=== PATIENT | female | born 1990 | race Two or more races ===

== ENCOUNTER → 2018-01-01 | Outpatient (CLI) | payer OTHER ==
[2018-01-01 19:19] LABS: FREE T4 (FREE THYROXINE) 1.06 ng/dL (0.78-2.19)
[2018-01-01 19:33] LABS: THYROID STIMULATING HORMONE 1.48 uIU/mL (0.47-4.68)
== END ==
LOC: OD 17:34
PROVIDERS: ATTEND Psychiatry & Neurology Psychiatry
DX: F43.10 Post-traumatic stress disorder, unspecified (principal)
CPT/HCPCS: 36415; 84439; 84443

== ENCOUNTER 2019-01-20 20:29 | Emergency (ER) | payer SELFPAY ==
[2019-01-20] MEDS ORDERED: ASPIRIN 81 MG TABLET, CHEWABLE PO ONE (20:37)
--- NOTE | 2019-01-20 20:37 | ER Document Report ---
ED Medical Screen (RME) - General Stated Complaint: CHEST PAIN Time Seen by Provider: 01/20/19 20:31 Primary Care Provider: CHIQUITA CARTWRIGHT MD [Primary Care Provider] - Follow up as needed Mode of Arrival: Ambulatory Information source: Patient Notes: Patient presents to the emergency department with chest pain that radiates to her back started 3 days ago. Reports she is having a hard time breathing. Is unsure if she is . Denies recent long trip. Has history of cardiac disease I have greeted and performed a rapid initial assessment of this patient. A comprehensive ED assessment and evaluation of the patient, analysis of test results and completion of the medical decision making process will be conducted by additional ED providers. Dictation of this chart was performed using voice recognition software; therefore, there may be some unintended grammatical errors. TRAVEL OUTSIDE OF THE [place] IN LAST 30 DAYS: No Doctor's Discharge - Discharge Referrals: CHIQUITA CARTWRIGHT MD [Primary Care Provider] - Follow up as needed
--- NOTE | 2019-01-20 21:06 | RADIOLOGY REPORT (SQ) ---
EXAM DESCRIPTION: XR CHEST 2 VIEWS COMPLETED DATE/TME: 01/20/2019 20:33 CLINICAL HISTORY: 28 years, Female, cp, difficulty breathing back pain Comparison: None FINDINGS: No focal lung consolidation. No pleural effusion. No pneumothorax. Cardiac and mediastinal silhouette is unremarkable. No acute osseous abnormality. Soft tissues are unremarkable. IMPRESSION: No acute findings. No focal lung consolidation.
--- NOTE | 2019-01-20 23:33 | EKG REPORT ---
SEVERITY:- NORMAL ECG - SINUS RHYTHM : Confirmed by: Aziza Lew MD 20-Jan-2019 23:32:19
[2019-01-21] MEDS ORDERED: ASPIRIN 81 MG TABLET, CHEWABLE PO ONE (04:01)
[2019-01-21] MEDS ORDERED: ASPIRIN 81 MG TABLET, CHEWABLE ONE (04:05)
[2019-01-21] MEDS ORDERED: LIDOCAINE 2% VISCOUS SOLN 20 ML UDCUP PO ONE (04:45)
[2019-01-21] MEDS ORDERED: METOCLOPRAMIDE HCL ORAL SOLN 10 MG/10 ML UDCUP PO ONE (04:45)
[2019-01-21] MEDS ORDERED: MAG HYDROX/AL HYDROX/SIMETH SUSP 30 ML UDCUP PO ONE (04:45)
--- NOTE | 2019-01-21 04:47 | ER Document Report ---
ED General - General Chief Complaint: Chest Pain Stated Complaint: CHEST PAIN Time Seen by Provider: 01/20/19 20:31 Primary Care Provider: CHIQUITA CARTWRIGHT MD [NO LOCAL MD] - Follow up as needed Mode of Arrival: Ambulatory Notes: Patient is a 28-year-old female who presents with complaints of some pain in the substernal epigastric region. Says pain is worse with eating. Is been there for approximately 3 days. No fevers. No vomiting. No diarrhea. No blood in her stool. She is never had this before. No other complaints at this time. She does eat spicy and acidic foods. She does not smoke. No alcohol use. In the triage note it mentions something about her potentially having a cardiac history however patient and her deny her having any history of any heart problems. TRAVEL OUTSIDE OF THE [place] IN LAST 30 DAYS: No - Related Data Allergies/Adverse Reactions: No Known Allergies Allergy (Unverified 01/21/19 04:38) Past Medical History - General Information source: Patient - Social History Smoking Status: Never Smoker Frequency of alcohol use: None Drug Abuse: None Family History: Reviewed & Not Pertinent Patient has suicidal ideation: No Patient has homicidal ideation: No Neurological Medical History: Reports: Hx Migraine Renal/ Medical History: Denies: Hx Peritoneal Dialysis Review of Systems - Review of Systems Notes: My Normal Review Basic REVIEW OF SYSTEMS: CONSTITUTIONAL : Denies fever, chills, or sweats. Denies recent illness. CARDIOVASCULAR: Lower substernal chest pain RESPIRATORY: Denies cough, cold, or chest congestion. Denies shortness of breath, difficulty breathing, or wheezing. GASTROINTESTINAL: Epigastric abdominal pain. Denies nausea, vomiting, or diarrhea. MUSCULOSKELETAL: Denies neck or back pain or joint pain or swelling. SKIN: Denies rash or skin lesions. NEUROLOGICAL: Denies altered mental status or loss of consciousness. Denies headache. Denies weakness or paralysis or loss of use of either side. Denies problems with gait or speech. Denies sensory or motor loss. ALL OTHER SYSTEMS REVIEWED AND NEGATIVE. Physical Exam - Vital signs Vitals: Temp Pulse Resp BP Pulse Ox 98.0 F 68 18 119/79 98 01/20/19 21:01 01/20/19 21:01 01/20/19 21:01 01/20/19 21:01 01/20/19 21:01 - Notes Notes: General Appearance: Well nourished, alert, cooperative, no acute distress, no obvious discomfort. Well-appearing. Vitals: reviewed, See vital signs table. Head: no swelling or tenderness to the head Eyes: PERRL, EOMI, Conjuctiva clear Mouth: No decreasd moisture Chest wall: Pain to palpation over the lower substernal area. Lungs: No wheezing, No rales, No rhonci, No accessory muscle use, good air exchange bilaterally. Heart: Normal rate, Regular rythm, No murmur, no rub Abdomen: Normal BS, soft, No rigidity, No abdominal tenderness, No guarding, no rebound, no abdominal masses, no organomegaly Extremities: good pulses in all extremities, no swelling or tenderness in the extremities, no edema. Skin: warm, dry, appropriate color, no rash Neuro: speech clear, oriented x 3, normal affect, responds appropriately to questions. Course - Re-evaluation Re-evalutation: 01/21/19 05:43 Patient is well-appearing. I feel patient safe to be discharged her symptoms are resolved with GI cocktail. Suspect coronary disease as her heart score is 0. She has no risk factors for coronary disease. Her EKG did not show any concerning findings. X-ray did not show any concerning findings. I suspect her pain is probably related to gastritis esophagitis based on the fact that she has pain over the epigastric and lower substernal area that is worse with eating and this pain is relieved with a GI cocktail. We will place her on Prilosec as well as Carafate. I informed her to follow-up with her primary care doctor in 3 to 5 days or to return to the ER if she is unable to follow-up with her doctor and her symptoms are not improving. She is to return to ER immediately if she has worsening pain, fevers, vomiting blood, or black or tarry stools. Patient agrees with plan and will be discharged home. Dictation of this chart was performed using voice recognition software; therefore, there may be some unintended grammatical errors. - Vital Signs Vital signs: Temp Pulse Resp BP Pulse Ox 97.6 F 92 20 109/71 98 01/21/19 04:28 01/21/19 04:28 01/21/19 04:28 01/21/19 04:28 01/21/19 04:28 - EKG Interpretation by Me Additional EKG results interpreted by me: 01/21/19 04:47 EKG is reviewed and interpreted by me. EKG shows sinus rhythm with a rate of [address] segment elevation or depression. No ischemic T wave inversions. CO interval, QRS duration, QT intervals are within normal range. No old EKG available for comparison. Discharge - Discharge Clinical Impression: Chest pain Qualifiers: Chest pain type: unspecified Qualified Code(s): R07.9 - Chest pain, unspecified Condition: Good Disposition: HOME, SELF-CARE Additional Instructions: I suspect that the pain in your lower chest and upper abdomen is related to gastritis. This is irritation of the stomach lining that will also sometimes lead to irritation of the proximal esophagus. This is why it hurts more when you eat. I have prescribed you two medications. Please take them as prescribed. Please avoid acidic foods such as fatmata, limes, tomatoes. Please avoid spicy foods, hot sauce, hot peppers. Please avoid fatty or fried foods. Please return to the ER or follow-up with your doctor if your symptoms are not improving after 5 days. Please return to ER immediately if you have fevers, vomiting, any blood in your stool, black or tarry stools, or if you feel that your pain is worsening. Prescriptions: Omeprazole 40 mg PO DAILY #20 capsule. Sucralfate [Carafate 1 gm Tablet] 1 gm PO ACHS #120 tablet Forms: Return to Work, Special Work Note Referrals: CHIQUITA CARTWRIGHT MD [NO LOCAL MD] - Follow up in 3-5 days
[2019-01-21] MEDS ORDERED: FAMOTIDINE 20 MG TABLET PO ONE (05:37)
[2019-01-21 06:03] VITALS: BP 103/67
== END 2019-01-21 06:03 | disposition home or self-care (01) ==
LOC: ER 20:29
DX: R07.2 Precordial pain (principal); R10.13 Epigastric pain
CPT/HCPCS: 93005; 99285; 71046; 93010; J3490